=== PATIENT | female | born 1995 | race American Indian/Alaskan Native ===

== ENCOUNTER 2022-01-09 05:55 | Emergency (ER) | payer SELFPAY ==
[2022-01-09] MEDS ORDERED: AMOXICILLIN 500 MG CAP PO NR (10:30)
[2022-01-09] MEDS ORDERED: oxyCODONE /ACETAMINOPHEN 5-325MG TAB PO NR (10:30)
--- NOTE | 2022-01-09 10:52 | Emergency Department Report ---
ED ENT HPI - General Chief complaint: Dental/Oral Stated complaint: TOOTH ACHE Time Seen by Provider: 01/09/22 09:57 Source: patient Mode of arrival: Ambulatory Limitations: No Limitations - History of Present Illness Initial comments: 26-year-old black female with no past medical history presents to the emergency department for evaluation of toothache. She states that she woke up this morning with severe tooth ache pain and swelling to her left upper gums. She denies fever. MD complaint: tooth pain -: Gradual, hour(s) Location: tooth # (15) Severity: moderate Severity scale (0 -10): 7 Quality: aching Consistency: constant Associated Symptoms: toothache. denies: fever, cough, gum swelling, pain with swallowing, sore throat, tinnitus, hearing loss, discharge from ear, rhinorrhea - Related Data Previous Rx's Medication Instructions Recorded Last Taken Type Acetaminophen/Codeine [Tylenol 1 tab PO Q6H PRN #12 tab 01/09/22 Unknown Rx /Codeine # 3 tab] Amoxicillin [Amoxicillin TAB] 875 mg PO BID #14 tab 01/09/22 Unknown Rx Naproxen [Naprosyn] 500 mg PO BID #14 tab 01/09/22 Unknown Rx Allergies Allergy/AdvReac Type Severity Reaction Status Date / Time No Known Allergies Allergy Verified 01/09/22 10:28 ED Dental HPI - General Chief complaint: Dental/Oral Stated complaint: TOOTH ACHE Time Seen by Provider: 01/09/22 09:57 Source: patient Mode of arrival: Ambulatory Limitations: No Limitations - Related Data Previous Rx's Medication Instructions Recorded Last Taken Type Acetaminophen/Codeine [Tylenol 1 tab PO Q6H PRN #12 tab 01/09/22 Unknown Rx /Codeine # 3 tab] Amoxicillin [Amoxicillin TAB] 875 mg PO BID #14 tab 01/09/22 Unknown Rx Naproxen [Naprosyn] 500 mg PO BID #14 tab 01/09/22 Unknown Rx Allergies Allergy/AdvReac Type Severity Reaction Status Date / Time No Known Allergies Allergy Verified 01/09/22 10:28 ED Review of Systems ROS: Stated complaint: TOOTH ACHE Other details as noted in HPI Comment: All other systems reviewed and negative Constitutional: denies: chills, fever ENT: dental pain. denies: throat pain, congestion Respiratory: denies: shortness of breath Cardiovascular: denies: chest pain, palpitations, dyspnea on exertion, orthopnea, edema, syncope, paroxysmal nocturnal dyspnea Gastrointestinal: denies: abdominal pain, nausea, vomiting Musculoskeletal: denies: back pain Skin: denies: rash, lesions Neurological: denies: headache, weakness ED Past Medical Hx - Medications Home Medications: Home Medications Medication Instructions Recorded Confirmed Last Taken Type Acetaminophen/Codeine [Tylenol 1 tab PO Q6H PRN #12 tab 01/09/22 Unknown Rx /Codeine # 3 tab] Amoxicillin [Amoxicillin TAB] 875 mg PO BID #14 tab 01/09/22 Unknown Rx Naproxen [Naprosyn] 500 mg PO BID #14 tab 01/09/22 Unknown Rx ED Physical Exam - General Limitations: No Limitations General appearance: alert, in no apparent distress - Head Head exam: Present: atraumatic, normocephalic - Eye Eye exam: Present: normal appearance. Absent: conjunctival injection - Expanded ENT Exam Expanded Teeth exam: Present: dental tenderness # (50), other (Renal abscess noted to gums surrounding tooth #15) - Neck Neck exam: Present: normal inspection, full ROM - Respiratory Respiratory exam: Absent: respiratory distress - Cardiovascular Cardiovascular Exam: Present: regular rate - GI/Abdominal GI/Abdominal exam: Absent: distended - Extremities Exam Extremities exam: Present: normal inspection - Back Exam Back exam: Present: normal inspection. Absent: tenderness - Neurological Exam Neurological exam: Present: alert, oriented X3 - Psychiatric Psychiatric exam: Present: normal affect, normal mood - Skin Skin exam: Present: warm, dry, intact, normal color ED Course Vital Signs 01/09/22 01/09/22 05:59 11:17 Temperature 98.4 F Pulse Rate 79 70 Respiratory 18 16 Rate Blood Pressure 151/92 Blood Pressure 142/88 [Left] O2 Sat by Pulse 97 99 Oximetry ED Medical Decision Making - Medical Decision Making 26-year-old black female with no past medical history presents to the emergency department for evaluation of toothache. She states that she woke up this morning with severe tooth ache pain and swelling to her left upper gums. She denies fever. Exam consistent for dental abscess to tooth #15. Patient will be treated with 7-day course of amoxicillin along with naproxen and Tylenol 3 to use as needed for pain. She is advised to follow-up with her dentist as planned and return to the emergency department for any concerning symptoms. She verbalized understanding of and agreement with plan of care. Critical care attestation.: If time is entered above; I have spent that time in minutes in the direct care of this critically ill patient, excluding procedure time. ED Disposition Clinical Impression: Dental abscess Disposition: 01 HOME / SELF CARE / HOMELESS Is pt being admited?: No Does the pt Need Aspirin: No Condition: Stable Instructions: Dental Abscess, [id number] Additional Instructions: Take medications as prescribed. Follow-up with dentist as planned. Return to the emergency department as needed. Prescriptions: Amoxicillin [Amoxicillin TAB] 875 mg PO BID #14 tab Naproxen [Naprosyn] 500 mg PO BID #14 tab Acetaminophen/Codeine [Tylenol /Codeine # 3 tab] 1 tab PO Q6H PRN #12 tab PRN Reason: Pain , Severe (7-10) Referrals: [facility] [Outside] - 3-5 Days [facility] [Outside] - 3-5 Days Time of Disposition: 10:52
[2022-01-09 11:17] VITALS: BP 142/88
== END 2022-01-09 11:17 | disposition home or self-care (01) ==
LOC: ED 05:55
DX: K04.7 Periapical abscess without sinus (principal)
CPT/HCPCS: 99282